=== PATIENT | male | born 1980 | race Caucasian/White ===

== ENCOUNTER 2016-10-25 14:11 | Emergency (ER) | payer OTHER ==
[~2016-10-25] VITALS: Ht 182.9 cm; Wt 83.9 kg
[2016-10-25 14:20] VITALS: BP 103/71
== END 2016-10-25 14:40 | disposition home or self-care (01) ==
LOC: ER 14:13
DX: J02.9 Acute pharyngitis, unspecified (principal); F17.200 Nicotine dependence, unspecified, uncomplicated; F12.90 Cannabis use, unspecified, uncomplicated
CPT/HCPCS: 99283; A4606; Z7610